=== PATIENT | male | born 1955 | race Caucasian/White ===

== ENCOUNTER 2016-11-24 12:24 | Emergency (ER) | payer OTHER, MEDICAID ==
[2016-11-24 12:34] VITALS: RESP 16; TEMP 98.6
--- NOTE | 2016-11-24 14:55 | EDPHY ---
H & P Stated Complaint: L GROIN PULL MONDAY/EXACERBATED WHEN WENT BACK TO WORK TODAY Time Seen by Provider: 11/24/16 14:51 HPI/ROS: HPI: 7-year-old male presents to emergency department with chief concern left groin pain. Symptoms onset suddenly while he was at work at [employer] 5 days ago, squatted down and "pulled something in my left groin. Took ibuprofen and symptoms slowly improved over a few days. Went to work again today, kneel down , and re-injured the area reporting 2/10 aching pain. Reports transient left testicle pain that lasted for for moments while in the ED today. Denies fever, chills, back pain, urinary symptoms, nausea, vomiting, diarrhea. Denies previous injury of the left groin. ROS:10 point review of systems is negative other than as stated in HPI Source: Patient Exam Limitations: No limitations - Personal History Current Tetanus/Diphtheria Vaccine: Yes - Medical/Surgical History Hx Asthma: Yes Hx Chronic Respiratory Disease: No Hx Diabetes: No Hx Cardiac Disease: No Hx Renal Disease: No Hx Cirrhosis: No Hx Alcoholism: No Hx HIV/AIDS: No Hx Splenectomy or Spleen Trauma: No Other PMH: ASTHMA, KNEE AND SHOULDER SURG - Family History Significant Family History: No pertinent family hx - Social History Smoking Status: Former smoker Alcohol Use: None Drug Use: None Additional Social History: , works at [employer] - Physical Exam Exam: Vital signs stable, reviewed by me General: Awake, alert, calm, cooperative. No acute distress. Head: Normalocephalic. Atraumatic. EENT: PERRLA. EOMI. No pallor or injection. Anicteric. No nystagmus. No injection. Neck: Supple, nontender. No lymphadenopathy. Full range of motion. No meningismus. Respiratory: Breathing unlabored. Breath sounds equal bilaterally and clear to auscultation. No adventitious sounds. CV: Chest nontender, atraumatic. Heart rate regular. No murmur, distal pulses 2+ bilaterally. Brisk cap refill all extremities. GI: Abdomen soft, nontender. Bowel sounds normoactive and positive x4 quadrants. : No suprapubic tenderness. No CVA or flank tenderness. Bilaterally, testicles without erythema or swelling. Nontender. Neuro: Alert. Oriented x 3. Speech clear. Nonfocal cranial nerves throughout. Sensation intact all extremities. Skin: Skin warm, dry, intact. No rashes, abrasions, or lacerations. Skin turgor normal. Extremities: Full range of motion in all 4 extremities. Strength 5+ all extremities. Tenderness left groin with deep palpation and with AB duction, external rotation of the left hip. No swelling. No masses. Constitutional: Initial Vital Signs Temperature (C) 37 C 11/24/16 12:32 Heart Rate 89 11/24/16 12:32 Respiratory Rate 16 11/24/16 12:32 Blood Pressure 145/98 H 11/24/16 12:32 O2 Sat (%) 93 11/24/16 12:32 O2 Delivery Mode Room Air Allergies/Adverse Reactions: No Known Allergies Allergy (Verified 11/24/16 12:31) Home Medications: Medication Instructions Recorded Advair 500/50 (RX) 11/24/15 Albuterol 11/24/15 Hydrocodone/APAP 5/325 [[place] 1 tab PO Q4 PRN #12 tab 11/24/16 5/325 (*)] Medical Decision Making - Diagnostics Imaging: Hip x-ray negative for evidence of acute injury-final radiology report pending at time this dictation ED Course/Re-evaluation: 61-year-old male presents to ED with left groin pain. 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 Took a few days off, symptoms improved somewhat and he re-injured them a today again at work again while he was in a kneeling position. He had transient episode of left testicular pain while in the ED. At time of exam he is asymptomatic in the left testicle. he has no abdominal pain, urinary symptoms, groin mass,no back or flank pain. I believe his symptoms are musculoskeletal in etiology. I will have him follow up with Occupational Health for ongoing evaluation. X-ray is negative for acute findings. final report pending at time this dictation. Differential Diagnosis: Differential diagnosis includes but is not limited to musculoskeletal strain, hernia, mass, epididymitis, orchitis , kidney stone Departure - Departure Disposition: Home, Routine, Self-Care Clinical Impression: Strain of groin Qualifiers: Encounter type: initial encounter Laterality: left Qualifier Code: (S76.212A) Strain of adductor muscle, fascia and tendon of left thigh, initial encounter Condition: Good Instructions: Musculoskeletal Pain (ED) Additional Instructions: Plan: X-ray shows no acute injury. Final report pending at time of this dictation. He will be notified if there further findings on final report. You may use 600 mg ibuprofen every 6-8 hours with food for the next 3-4 days Follow up with occupational health within the next 1-2 days for further evaluation and treatment, no work until cleared to go back by Occupational Health For severe pain, may use 1 [place] every 4 hours as needed--Never drink or drive while taking this medication. This medication impairs decision making capacity so do not work or sign important documents while taking. This medication its constipating so drink plenty of fluids and consider an [id number] stool softener such as docusate sodium (Colace) while taking this medication. This medication has addictive properties. You should use the least amount for the shortest amount of time. [facility] do not refill narcotic pain medication prescriptions. This is a hospital policy. You will need to follow up as indicated for recheck for further narcotic refills. Alternate ice and heat to left groin, gentle stretching Referrals: [place],. [Primary Care Provider] - As per Instructions Stand Alone Forms: Work Comp Follow Up, Work Excuse Prescriptions: Hydrocodone/APAP 5/325 [[place] 5/325 (*)] 1 tab PO Q4 PRN #12 tab PRN Reason: Severe pain
--- NOTE | 2016-11-24 15:28 | DX ---
Left Hip, 2 Views Indication: Groin pain. Comparisons: None relevant. Findings: Mild joint space narrowing is present at both hip joints. The AP pelvis supine is unremarka ble. Additional views of the left hip were performed which are unremarkable except for some arthritic changes. Sacrum is unremarkable. Impression: Mild osteoarthritic changes of the hips.
[2016-11-24 15:46] VITALS: BP 142/96; PULSE 86; O2SAT 94
== END 2016-11-24 15:46 | disposition home or self-care (01) ==
DX: S76.212A Strain of adductor muscle, fascia and tendon of left thigh, initial encounter (principal); J45.909 Unspecified asthma, uncomplicated; Z87.891 Personal history of nicotine dependence; X58.XXXA Exposure to other specified factors, initial encounter; Y92.69 Other specified industrial and construction area as the place of occurrence of the external cause; Y99.8 Other external cause status; Y93.89 Activity, other specified

== ENCOUNTER → 2018-11-20 | Outpatient (CLI) | payer MEDICAID | LOC: FIMAGING 11:45 | PROVIDERS: ATTEND Physician Assistant Medical | DX: J40 Bronchitis, not specified as acute or chronic (principal); J98.4 Other disorders of lung; J98.11 Atelectasis ==

== ENCOUNTER → 2018-12-25 | Outpatient (CLI) | payer MEDICAID | LOC: FIMAGING 14:39 | PROVIDERS: ATTEND Physician Assistant Medical | DX: S92.021A Displaced fracture of anterior process of right calcaneus, initial encounter for closed fracture (principal) ==